=== PATIENT | male | born 1995 | race Caucasian/White ===

== ENCOUNTER 2020-10-07 13:34 | Emergency (ER) | payer OTHER ==
[~2020-10-07] VITALS: Ht 177.8 cm; Wt 163.0 kg
[2020-10-07 16:26] VITALS: BP 122/75
== END 2020-10-07 16:28 | disposition home or self-care (01) ==
LOC: M ED 13:34
DX: R19.5 Other fecal abnormalities (principal); F17.200 Nicotine dependence, unspecified, uncomplicated

== ENCOUNTER → 2020-10-08 | Outpatient (REF) | payer OTHER | LOC: M LAB REF 13:37 | PROVIDERS: ATTEND Emergency Medicine | DX: R19.5 Other fecal abnormalities (principal) ==